=== PATIENT | female | born 1955 | race Caucasian/White ===

== ENCOUNTER 2018-06-20 08:21 | Day surgery (SDC) | payer OTHER ==
[2018-06-17 12:50] VITALS: BMI 25.7
[2018-06-20 09:12] LABS: Hemoglobin 13.4 g/dL (12.0-16.0); Mean Corpuscular HGB CONC 31.3 g/dL (32.0-36.0); Mean Corpuscular Hemoglobin 27.7 pg (27.0-31.0); Mean Corpuscular Volume 88.6 fL (78.0-98.0); Mean Platelet Volume 7.1 fL (7.4-10.4); Platelet Count 317 thou/uL (130-400); RBC Distribution Width 11.7 % (11.5-14.5); Red Blood Cell (RBC) Count 4.84 mill/uL (4.20-5.40); White Blood Cell (WBC) Count 5.2 thou/uL (4.8-10.8)
[2018-06-20] MEDS ORDERED: CEFAZOLIN/Water 2 GM/20 ML SYRINGE ONE (09:19)
[2018-06-20 09:32] LABS: Anion Gap 14 mmol/L (10-20); BUN (Urea Nitrogen) 11 mg/dL (9.8-20.1); Calc. Creatinine Clearance 76 mL/min (70-130); Calcium 9.8 mg/dL (7.8-10.44); Carbon Dioxide 23 mmol/L (22-29); Chloride 106 mmol/L (98-107); Estimated GFR-MDRD 66; Glucose 100 mg/dL (70-105); Sodium 139 mmol/L (136-145)
[2018-06-20] MEDS ORDERED: Midazolam HCl 2 mg/2 ml Vial ONE (11:21)
[2018-06-20] MEDS ORDERED: Fentanyl 250 MCG/5 ML VIAL ONE (11:21)
[2018-06-20] MEDS ORDERED: Glycopyrrolate 0.2 MG/ML 5 ML SYRINGE ONE (12:33)
[2018-06-20] MEDS ORDERED: Ketorolac Tromethamine 30 MG/ML VIAL ONE (12:33)
[2018-06-20] MEDS ORDERED: Ondansetron HCl/PF 4 MG/2 ML Vial ONE ×2 (12:33→13:40)
[2018-06-20] MEDS ORDERED: PROPOFOL 200 MG/20 ML VIAL ONE (12:33)
[2018-06-20] MEDS ORDERED: Lidocaine 1% PF 5 ML VIAL ONE (12:33)
[2018-06-20] MEDS ORDERED: Dexamethasone 20 MG/5 ML VIAL ONE (12:33)
--- NOTE | 2018-06-20 13:04 | OP ---
DATE OF PROCEDURE: 06/20/2018 SURGEON: Paxton Childs M.D. [employer]WR[employer]S INSPECTOR: Dayna Randle PROCEDURE: Right L4-5 and right L5-S1 laminectomy. PROCEDURE IN DETAIL: The patient was brought to the operating room and intubated. She was rolled in the prone position on gel-filled chest rolls. Incision made exposing L4 through the sacrum and our level was confirmed by x-ray. We performed complete L5, superior S1, and inferior L4 laminectomy moise trally and then extended this to the right decompressing the right L4-5 and right L5-S1 lateral reces s. The wound was then extensively irrigated, immaculate hemostasis was secured. Vancomycin powder w as applied and the wound was closed in anatomic layers.
[2018-06-20] MEDS ORDERED: HYDROmorphone 2 MG/ML VIAL ONE (13:07)
[2018-06-20] MEDS ORDERED: Fentanyl 100 MCG/2 ML VIAL ONE (13:24)
[2018-06-20] MEDS ORDERED: Metoclopramide HCl 10 MG/2 ML VIAL ONE (14:18)
--- NOTE | 2018-06-20 16:54 | EKG ---
Test Reason : PREOP Blood Pressure : / mmHG Vent. Rate : 058 BPM Atrial Rate : 058 BPM P-R Int : 152 ms QRS Dur : 070 ms QT Int : 426 ms P-R-T Axes : 043 045 020 degrees QTc Int : 418 ms Sinus bradycardia Otherwise normal ECG No previous ECGs available Confirmed by TU CHUNG, DR. Daniels ([id number]) on 06/20/2018 4:53:22 PM Referred By: YANELIS Confirmed By:DR. Frances MAE MD
== END 2018-06-20 16:50 | disposition home or self-care (01) ==
LOC: SDC 08:21
PROVIDERS: ATTEND Neurological Surgery
PROC: 01NB0ZZ Release Lumbar Nerve, Open Approach (ICD-10-PCS; principal; 2018-06-20)
DX: M51.16 Intervertebral disc disorders with radiculopathy, lumbar region (principal); I10 Essential (primary) hypertension; E78.5 Hyperlipidemia, unspecified; M19.90 Unspecified osteoarthritis, unspecified site; Z79.899 Other long term (current) drug therapy
CPT/HCPCS: 36415; 76001; 80048; 85027; 93005; 93010; 96374; 96375; J1170; J2250; J2405; J2765; J3010; J3370